=== PATIENT | female | born 1995 | race Caucasian/White ===

== ENCOUNTER 2020-05-27 13:25 | Emergency (ER) | payer OTHER ==
[2020-05-27 16:08] LABS: HEMATOCRIT 38.2 % (37.0-47.0); HEMOGLOBIN 12.1 g/dl (12.0-16.0); IMMATURE GRANULOCYTES 0.2 % (0.0-5.0); MEAN CELL VOLUME 79.4 fL CALC (80.0-100.0); MEAN CORPUSCULAR HGB 25.2 pG CALC (26.0-32.0); MEAN CORPUSCULAR HGB CONC 31.7 g/dL CAL (32.0-36.0); NEUT# 5.94 thou/uL (2.00-7.15); RED BLOOD COUNT 4.81 mill/uL (4.20-5.60); RED CELL DISTRI WIDTH 16.8 % (11.5-15.5)
[2020-05-27 16:22] LABS: ALBUMIN 4.3 g/dL (3.2-5.0); ALKALINE PHOSPHATASE 90 u/l (38-126); ANION GAP 15 (6-22 (CALC)); BILIRUBIN, TOTAL 0.3 mg/dL (0.0-1.4); BUN 5 mg/dL (7-17); BUN/CREATININE RATIO 9 (12-20 (CALC)); CARBON DIOXIDE 23 mmol/l (22-30); CHLORIDE 105 mmol/l (95-108); CREATININE 0.5 mg/dL (0.5-1.0); GFR > 60 ML/MIN (>=60 (CALC)); GFR FOR AFR.AMER. > 60 ML/MIN (>=60 (CALC)); POTASSIUM 4.4 mmol/l (3.5-5.1); SGOT/AST 20 u/l (14-36); SODIUM 138 mmol/l (137-146); TOTAL PROTEIN 7.3 g/dL (6.3-8.2)
[2020-05-27 18:51] LABS: URINE BILIRUBIN - DIPSTICK NEGATIVE (NEGATIVE); URINE BLOOD DIPSTICK TRACE-INTACT (NEGATIVE); URINE COLOR YELLOW; URINE GLUCOSE - DIPSTICK NEGATIVE (NEGATIVE); URINE KETONE NEGATIVE (NEGATIVE); URINE NITRITE - DIPSTICK NEGATIVE (Negative); URINE PROTEIN - DIPSTICK NEGATIVE (NEG-TRACE); URINE UROBILINOGEN - DIPSTICK 0.2 E.U./dL (0.2)
[2020-05-27 18:53] LABS: URINE LEUK ESTERASE MODERATE (NEGATIVE)
[2020-05-27 18:58] LABS: URINE SQUAMOUS EPITHELIAL CELL MODERATE EPI/hpf (0-FEW)
[2020-05-27] MEDS ORDERED: KEFLEX500 M1 PO (20:02)
[2020-05-27 20:09] VITALS: BP 101/78
== END 2020-05-27 20:09 | disposition home or self-care (01) | DRG 690 ==
LOC: ED 13:25
PROVIDERS: Physician Assistant Surgical
DX: N39.0 Urinary tract infection, site not specified (principal)
CPT/HCPCS: Q9967